=== PATIENT | male | born 1955 | race Hispanic/Latino ===

== ENCOUNTER 2018-10-20 19:18 | Observation (INO) | payer BC, OTHER ==
[~2018-10-20] VITALS: Ht 175.3 cm; Wt 92.1 kg
[~2018-10-20 19:18] MED LIST: AMLODIPINE BESYL5 MG PO; ASPIR 8181 MG PO; CO Q10100 MG PO; FLOMAX0.4 MG PO; PLAVIX75 MG PO; SIMVASTATIN40 MG PO
--- OUTSIDE RECORDS SUMMARY | 2018-10-20 19:22 | XMS REPORT ---
Author Author [facility] Address Unknown Phone Unavailable Care Team Providers Care Assistant Program Director Name Role Phone Unavailable Unavailable Problems This patient has no known problems. Allergies, Adverse Reactions, Alerts This patient has no known allergies or adverse reactions. Medications This patient has no known medications.
[2018-10-20] MEDS ORDERED: SODIUM CHLORIDE 0.9% 1000ML 1,000 ML IV ONE (19:45)
[2018-10-20] MEDS ORDERED: PANTOPRAZOLE 40 MG 10ML VIAL IV NR (20:00)
[2018-10-20] MEDS ORDERED: ONDANSETRON HCL INJ 2MG/ML 2ML 2 MG/ML VIAL IV NR (20:00)
[2018-10-20 20:03] LABS: BASOPHILS % 0.3 % (0.0-1.0); HEMOGLOBIN 15.8 g/dL (14.0-18.0); LYMPHOCYTES # (AUTO) 1.5 (1.0-3.2); LYMPHOCYTES % 12.5 % (18.0-39.1); MEAN CORPUSCULAR HGB CONC 31.6 g/dL (31-35); MEAN CORPUSCULAR VOLUME 88.5 fL (81-99); MONOCYTES # (AUTO) 0.8 (0.2-0.8); MONOCYTES % 6.9 % (4.4-11.3); NEUTROPHILS # (AUTO) 9.6 (2.1-6.9); NEUTROPHILS % 80.1 % (38.7-80.0); PLATELET COUNT 295 x10e3/uL (140-360); RED BLOOD COUNT 5.65 x10e6/uL (4.3-5.7); RED CELL DISTRIBUTION WIDTH 14.6 % (11.7-14.4)
[2018-10-20 20:24] LABS: ALBUMIN 4.4 g/dL (3.5-5.0); ALBUMIN/GLOBULIN RATIO 1.1 (0.8-2.0); ANION GAP 15.8 mmol/L (8-16); CALCIUM 10.3 mg/dL (8.4-10.2); CREATININE, SERUM 1.29 mg/dL (0.72-1.25); POTASSIUM 3.8 mmol/L (3.5-5.1)
[2018-10-20 20:26] LABS: INR 1.08; PROTHROMBIN TIME 14.5 seconds (11.9-14.5)
[2018-10-20 20:27] LABS: PARTIAL THROMBOPLASTIN TIME 29.5 seconds (23.8-35.5)
[2018-10-20 20:43] LABS: CLARITY,URINE HAZY (CLEAR); COLOR,URINE YELLOW (YELLOW); KETONES,URINE 1+ (NEGATIVE); LEUKOCYTE ESTERASE ,URINE NEGATIVE (NEGATIVE); NITRITE,URINE NEGATIVE (NEGATIVE); PROTEIN,URINE DIPSTICK 3+ (NEGATIVE); URINE UROBILINOGEN 4 mg/dL (0.2 - 1)
[2018-10-20 20:44] LABS: BILIRUBIN,URINE 1+ (NEGATIVE)
[2018-10-20 20:54] LABS: WBC,URINE (MAN) 0-5 /HPF (0-5)
[2018-10-20 20:55] LABS: BACTERIA,URINE FEW /HPF; EPITHELIAL CELLS,URINE FEW /LPF; MUCUS,URINE FEW (RARE); RBC,URINE 0-5 /HPF (0-5)
--- NOTE | 2018-10-20 21:40 | Diagnostic Imaging Report ---
EXAM: CT Abdomen and Pelvis WITH contrast INDICATION: abd pain, vomiting COMPARISON: None. TECHNIQUE: Abdomen and pelvis were scanned utilizing a multidetector helical scanner from the lung base to the pubic symphysis after administration of IV contrast. Coronal and sagittal reformations were obtained. Routine protocol was performed. Scan was performed when during portal venous phase. IV CONTRAST: 100 mL of Isovue 370 ORAL CONTRAST: Water COMPLICATIONS: None RADIATION DOSE: Total DLP: 657.9 mGy*cm Estimated effective dose: (DLP x 0.015 x size factor) mSv Dose modulation, iterative reconstruction, and/or weight based adjustment of the mA/kV was utilized to reduce the radiation dose to as low as reasonably achievable. FINDINGS: LINES and TUBES: None. LOWER THORAX: Large hiatal hernia with organoaxial rotation. Circumferential esophageal wall thickening may be related to reflux. HEPATOBILIARY: No focal hepatic lesions. No biliary ductal dilation. GALLBLADDER: There are stones in the gallbladder. No wall thickening. SPLEEN: No splenomegaly. PANCREAS: No focal masses or ductal dilatation. ADRENALS: No adrenal nodules KIDNEYS/URETERS: Kidneys enhance symmetrically. No hydronephrosis. No solid mass lesions. Subcentimeter hypodensity in the superior left renal pole, statistically likely cyst. Nonspecific mild right perinephric stranding, greater compared to the left kidney. Punctate nonobstructing calculi in the right kidney without ureteral calculus. GI TRACT: No abnormal distention, wall thickening, or evidence of bowel obstruction. There are diverticula within the colon without evidence of diverticulitis. Appendix is normal. PELVIC ORGANS/BLADDER: Unremarkable. LYMPH NODES: No lymphadenopathy. VESSELS: There is moderate atherosclerotic disease in the aorta and major arterial branches. Circumaortic left renal vein. PERITONEUM / RETROPERITONEUM: No free air or fluid. BONES: There are degenerative changes in the lumbar spine. SOFT TISSUES: Small fat-containing direct left inguinal hernia. IMPRESSION: 1. Large hiatal hernia with organoaxial rotation. Nonspecific circumferential esophageal wall thickening, possibly related to esophagitis from reflux given the hiatal hernia or reported emesis. 2. Colonic diverticulosis. 3. Given reported blood in stool, recommend correlation with colon cancer screening given limited ability on non-colonography CT to evaluate for small masses. 4. Cholelithiasis. Signed by: DR. Brennen Sandra MD on 10/20/2018 9:37 PM
[2018-10-20] MEDS ORDERED: MORPHINE SULFATE 2 MG/ML SYR 1ML IV PRN (22:15)
[2018-10-20] MEDS ORDERED: ONDANSETRON HCL INJ 2MG/ML 2ML 2 MG/ML VIAL IV PRN (22:15)
[2018-10-20] MEDS ORDERED: ISOSORBIDE MONO30 MG PO (22:40)
[2018-10-20] MEDS ORDERED: ATORVASTATIN CA20 MG PO (22:40)
[2018-10-21] MEDS: SODIUM CHLORIDE 0.9% 1000ML 1,000 ML IV SCH ×3 (00:26→10:22)
[2018-10-21 05:51] LABS: BASOPHILS % 0.3 % (0.0-1.0); EOSINOPHILS # (AUTO) 0.1 (0.0-0.4); EOSINOPHILS % 0.5 % (0.0-6.0); HEMATOCRIT 39.4 % (38.2-49.6); HEMOGLOBIN 12.5 g/dL (14.0-18.0); LYMPHOCYTES # (AUTO) 2.1 (1.0-3.2); LYMPHOCYTES % 22.8 % (18.0-39.1); MEAN CORPUSCULAR HEMOGLOBIN 28.2 pg (28-32); MEAN CORPUSCULAR HGB CONC 31.7 g/dL (31-35); MEAN CORPUSCULAR VOLUME 88.7 fL (81-99); MONOCYTES # (AUTO) 0.9 (0.2-0.8); MONOCYTES % 9.7 % (4.4-11.3); NEUTROPHILS # (AUTO) 6.2 (2.1-6.9); NEUTROPHILS % 66.4 % (38.7-80.0); PLATELET COUNT 231 x10e3/uL (140-360); RED BLOOD COUNT 4.44 x10e6/uL (4.3-5.7); RED CELL DISTRIBUTION WIDTH 14.6 % (11.7-14.4)
[2018-10-21] MEDS ORDERED: PIPER-TAZ 3.375 GM 50 ML IV SCH (06:00)
[2018-10-21] MEDS ORDERED: SODIUM CHLORIDE 0.9% 50ML 50 ML ONE (06:15)
[2018-10-21] MEDS ORDERED: IOPAMIDOL 370 MG/ML 200 ML INFUS..BTL INJ ONE (06:15)
[2018-10-21 06:27] LABS: ALANINE AMINOTRANSFERASE 64 IU/L (0-55); ALBUMIN 3.3 g/dL (3.5-5.0); ALBUMIN/GLOBULIN RATIO 1.1 (0.8-2.0); ALKALINE PHOSPHATASE 90 IU/L (40-150); AMYLASE 89 U/L (25-125); ANION GAP 10.7 mmol/L (8-16); BLOOD UREA NITROGEN 26 mg/dL (7-26); BUN/CREATININE RATIO 28 (6-25); CALCIUM 8.5 mg/dL (8.4-10.2); CARBON DIOXIDE 26 mmol/L (22-29); CHLORIDE 107 mmol/L (98-107); CREATININE, SERUM 0.93 mg/dL (0.72-1.25); EST GLOMERULAR FILTRATION RATE > 60 ML/MIN (60-); GLUCOSE 84 mg/dL (74-118); LIPASE 21 U/L (8-78); POTASSIUM 3.7 mmol/L (3.5-5.1); SODIUM 140 mmol/L (136-145)
[2018-10-21] MEDS: ISOSORBIDE MONONITRATE 30 MG TAB CR PO SCH (09:00)
[2018-10-21] MEDS: AMLODIPINE BESYLATE 5 MG TAB PO SCH (09:00)
--- NOTE | 2018-10-21 12:00 | NUR ---
Christofer WEISS AT BEDSIDE FOR PATIENT EVAL, AWAITING ORDERS AT THIS TIME.
--- NOTE | 2018-10-21 12:45 | Diagnostic Imaging Report ---
MRCP CPT code: 05533 History: Nausea, vomiting, hematochezia, gallstones and elevated LFTs Comparison: Abdomen/pelvis 10/20/2018. Technique: Multiplanar, multisequence images of the abdomen were obtained per MRCP protocol. 3D volume rendered reformation images of the biliary tree were performed. No intravenous gadolinium was administered. Findings: The intra and extrahepatic biliary ducts, and cystic duct appear normal. Common bile duct measures 6 mm in diameter with squared shoulders as it approaches the ampulla. There are no intraluminal filling defects to suggest choledocholithiasis. The pancreas duct is not dilated. Gallbladder: Present and is filled with gallstones. The largest gallstone measures 1.3 cm. No gallbladder wall thickening or pericholecystic fluid. Liver: Decreased signal on opposed phase sequence consistent with steatosis. Calculated hepatic fat percentage is 19.7 consistent with moderate steatosis. No evidence of mass. Spleen: Normal size and signal. No mass Pancreas: Diffuse fatty atrophy. No mass Kidneys: No hydronephrosis. A cyst in the right kidney measures 7 mm. A cyst in the upper pole of the left kidney measures 8 mm. Adrenal glands: No evidence for mass. Lymph nodes: No enlarged abdominal or periaortic lymph nodes. Bowel: Large hiatal hernia containing stomach. Diverticulosis coli. Visualized portions of the small bowel are normal in diameter with normal wall thickness. Peritoneum/retroperitoneum: No free fluid or fluid collection. Visualized portions of the pelvis are unremarkable. Lung bases: Clear. Bones: Normal marrow signal. No focal osseous lesions. IMPRESSION: 1. Cholelithiasis. No evidence of choledocholithiasis. Squaring of the shoulders of the distal common bile duct may be secondary to ampullary stenosis. No intrahepatic biliary ductal dilatation. 2. Moderate steatosis. 3. Large hiatal hernia containing stomach. 4. Diverticulosis coli. Thank you for your referral. Signed by: Dr. Leigh Wylie MD on 10/21/2018 12:41 PM
[2018-10-21] MEDS: PIPER-TAZ 3.375 GM 50 ML IV SCH ×2 (14:04→17:32)
--- NOTE | 2018-10-21 15:20 | NUR ---
Dr. Joseph here rounding on pt.
--- NOTE | 2018-10-21 15:20 | NUR ---
Woodrow myers in [facility] - 10/21/18 at [email or web address] Joseph here rounding at this time.
[2018-10-21] MEDS ORDERED: MORPHINE SULFATE INJ 4 MG/ML INJ 1ML IV PRN (15:30)
--- NOTE | 2018-10-21 15:46 | NUR ---
Dr. Estefani Mcgee notified of consult.
[2018-10-21 15:57] VITALS: BP 137/68
[2018-10-21] MEDS ORDERED: PNEUMOCOCCAL VACCINE POLYVALENT 23 MCG/0.5 ML VIAL IM SCH (15:58)
[2018-10-21] MEDS ORDERED: INFLUENZA VIRUS VAC SPLIT INJ 0.5 ML SYR IM SCH (15:58)
[2018-10-21 15:59] VITALS: BP 137/68
[2018-10-21 16:11] VITALS: BP 137/68
[2018-10-21 20:00] VITALS: BP 147/68
[2018-10-21] MEDS ORDERED: ATORVASTATIN 20 MG TAB PO SCH (21:00)
[2018-10-22] VITALS: BP 130/67
[2018-10-22] MEDS: SODIUM CHLORIDE 0.9% 1000ML 1,000 ML IV SCH ×2 (01:22→12:20)
[2018-10-22] MEDS: PIPER-TAZ 3.375 GM 50 ML IV SCH ×2 (01:22→10:05)
--- NOTE | 2018-10-22 01:26 | History and Physical ---
CHIEF COMPLAINT: Nausea, vomiting, and diarrhea. HISTORY OF PRESENT ILLNESS: This is a 63-year-old male with past medical history of morbid obesity, hyperlipidemia, and hypertension, who comes into the ED with complaints of nausea, vomiting, abdominal pain ongoing for the last 3 to 4 days. He reports that his abdominal pain was a kind of diffuse in nature. Denies any hemoptysis or any hematemesis. Also, reports having diarrhea, loose in nature, but no blood in the stool. Denies any bilious vomiting. The patient was evaluated at bedside on the medical floor in the ER. Currently, he denies any abdominal pain. He is hungry. He reports his pain is all resolved now. His imaging study was concerning for cholelithiasis. REVIEW OF SYSTEMS: Pertinent positives: Nausea, vomiting, and abdominal pain. Pertinent negatives: Denies any chest pain, palpitation, dysuria, hematuria, frequency, urgency, lightheadedness, dizziness, cough, congestion, fever, or any other complaints. Rest of 14-point review of systems has been reviewed with the patient and are negative. ALLERGIES: NO KNOWN DRUG ALLERGIES. HOME MEDICATIONS: Amlodipine 5 mg daily, aspirin 81 mg daily, Lipitor 20 mg at bedtime, isosorbide mononitrate 30 mg daily, and Plavix 75 mg daily. PAST MEDICAL HISTORY: He has hyperlipidemia and hypertension. PAST SURGICAL HISTORY: None. FAMILY HISTORY: Hypertension and diabetes. SOCIAL HISTORY: No drugs or alcohol. Does not smoke. Good social support. LABORATORY FINDINGS: Show white count is 9.3, on admission, it was 12, hemoglobin 12.5, hematocrit is 39, and platelets of 231. Coagulation; PT is 14, INR 1, and PTT 29. Chemistry; sodium 140, potassium 3.7, chloride 107, bicarb 26, anion gap 10, BUN is 26, creatinine is 0.93, glucose 84, and calcium 8.5. His total bilirubin was 1.4, AST 37, ALT 64, alkaline phosphatase 90, total protein 6.3, lipase is 21, and amylase is 89. Urinalysis was found to be 3+ protein, 1+ ketones, and specific gravity is elevated. Microbiology none. IMAGING STUDIES: CT of abdomen and pelvis shows a large hiatal hernia. There is possible esophagitis, reflux. MRCP shows cholelithiasis with no evidence of choledocholithiasis of the common bile duct. There was significant moderate steatosis. Large hiatal hernia containing stomach. PHYSICAL EXAMINATION: VITAL SIGNS: Temperature is 98.7, pulse 64, respirations 16, blood pressure , and pulse ox 96% on room air. GENERAL: In no acute distress. Alert and oriented x3. Cooperative on examination. HEENT: Head is normocephalic and atraumatic. Eyes, pupils equal, round, and reactive to light bilaterally. Extraocular movements are intact bilaterally. No evidence of erythema or exudate in posterior pharynx. Has poor dentition. NECK: Supple. Good range of motion. PULMONARY: Clear to auscultation bilaterally. No wheezing, rales, or rhonchi. No crackles appreciated. CARDIOVASCULAR: S1 and S2. No murmurs or gallops. ABDOMEN: Soft, nondistended, and nontender to palpation. Bowel sounds are present. MUSCULOSKELETAL: Strength is 5/5 throughout. No evidence of any muscles deficits on examination. No weakness appreciated. NEUROLOGICAL: Cranial nerves II through XII grossly intact. No evidence of any neurological deficits on exam. SKIN: Intact. Warm to touch. Good cap refill. PSYCHIATRIC: Normal affect and mood. EXTREMITIES: No edema. Good range of motion throughout. IMPRESSION: 1. Abdominal pain with nausea, vomiting, and found to have a large hiatal hernia. 2. Cholelithiasis, could be leading to his underlying abdominal pain, nausea, and vomiting. 3. Hypertension. 4. Hyperlipidemia. PLAN: At this time, the patient is pain free. No more nausea or vomiting. We will start on a clear liquid diet. Await General Surgery recommendations. Pain control, antinausea medication, and IV fluids. Resume same home medications. Hold the Plavix and then he needs some surgical intervention. It seems to be less likely to be gallbladder, as his gallbladder is not inflamed, but could be biliary colic. At this time, we will continue same plan of care. Monitor closely. Get a.m. labs. MD SIGRID Hammer/RICH /[id number]
[2018-10-22 04:00] VITALS: BP 141/71
[2018-10-22 07:46] VITALS: BP 149/69
[2018-10-22] MEDS ORDERED: ASPIRIN 81 MG CHEW TAB PO SCH (09:00)
[2018-10-22] MEDS: AMLODIPINE BESYLATE 5 MG TAB PO SCH (10:05)
[2018-10-22] MEDS: ISOSORBIDE MONONITRATE 30 MG TAB CR PO SCH (10:05)
[2018-10-22 11:40] VITALS: BP 134/63
[2018-10-22 11:47] VITALS: BP 134/63
--- NOTE | 2018-10-23 10:55 | Discharge Summary ---
FINAL DISCHARGE DIAGNOSES: 1. Abdominal pain secondary to a large hiatal hernia with associated nausea and vomiting - General Surgery came and evaluated the patient, recommended discharge to follow up in his office in 1-2 weeks for further management and care and also to have his hiatal hernia repaired at a later date. 2. Cholelithiasis. 3. Hypertension. 4. Hyperlipidemia. 5. Acute kidney injury secondary to dehydration. CONSULTANTS: General Surgery. PHYSICAL EXAMINATION: VITAL SIGNS: Temperature is 97.5, pulse is 67, respiratory rate is 19, blood pressure is 134/63, and pulse ox is 96% on room air. LAB FINDINGS: Show white count is9.3, hemoglobin 12.5, hematocrit 39, and platelets of 231. Chemistry; sodium 140, potassium 3.7, chloride 107, bicarb 26, anion gap of 10.7, BUN 26, creatinine 0.93, calcium is 8.5. Total bilirubin is 1.4, AST 37, ALT 64, alkaline phosphatase 90, total protein 6.3, albumin is 3.3, lipase is 21. Urinalysis was consistently negative, shows evidence of dehydration and elevated specific gravity. MICROBIOLOGY: None. IMAGING STUDIES: CT abdomen and pelvis shows large hiatal hernia with organoaxial rotation. esophageal wall thickening possibly related to esophagitis hiatal hernia reported. There is evidence of diverticulosis. There is some cholelithiasis as well. MRCP was performed, shows cholelithiasis, no evidence of choledocholithiasis. the distal common bile duct maybe secondary to ampullary stenosis. No intrahepatic biliary duct dilatation. Moderate steatosis. Large hiatal hernia containing stomach. Diverticulosis coli. HOSPITAL COURSE: This is a 63-year-old male, who came into the ED with complaint of abdominal pain, nausea, vomiting for the last several days. The patient was found to be dehydrated and started on IV fluids. The patient was also found to have acute kidney injury secondary to dehydration, which resolved with IV fluids. The patient improved throughout the hospital course. He was on pain control and is on nausea medication. He was tolerating diet well. General Surgery was consulted. Imaging studies were consistent with a large hiatal hernia. According to General Surgery's note, he recommends outpatient followup in his office in about 1-2 weeks to have his hiatal hernia repaired and no need for any intervention at this time during this hospital stay. The patient verbalized understanding. The patient was then cleared by General Surgery for discharge home. The patient was discharged based on General Surgery's recommendations upon his expertise and opinion. His notes state that he was okay to discharge home and to follow up later this week for further test and to outpatient hiatal hernia repair for an elective surgery as well as cholecystectomy . On discharge, the patient was tolerating diet well with no other complaints. No nausea, no vomiting, no abdominal pain. On the day of discharge, vital signs stable, labs reviewed and stable. The patient was seen, evaluated, and examined on the day of discharge, no other complaints. The patient verbalized understanding and agrees with plan of care and followup appointment as an outpatient with the primary care physician in 1 week and General Surgery in about 1-week time. MEDICATIONS: See med reconciliation form. DISPOSITION: Home. CONDITION: Stable. DIET: Heart healthy. If there are any worsening symptoms, the patient is advised to come back to the ED for further evaluation. Discharge summary took greater than 35 minutes. MD SIGRID Hammer/[facility] /[id number]
== END 2018-10-22 14:30 | disposition home or self-care (01) ==
LOC: ER 19:18 → ERHOLD 22:16 → IMCU 10-21 15:53
PROVIDERS: ADMIT Internal Medicine; ATTEND Internal Medicine
DX: K44.0 Diaphragmatic hernia with obstruction, without gangrene (principal); K56.2 Volvulus; K80.20 Calculus of gallbladder without cholecystitis without obstruction; N17.9 Acute kidney failure, unspecified; R19.7 Diarrhea, unspecified; Z82.49 Family history of ischemic heart disease and other diseases of the circulatory system; E66.01 Morbid (severe) obesity due to excess calories; Z68.1 Body mass index [BMI] 19.9 or less, adult; E78.5 Hyperlipidemia, unspecified; I10 Essential (primary) hypertension; Z68.30 Body mass index [BMI] 30.0-30.9, adult; E86.0 Dehydration
CPT/HCPCS: 36415 ×2; 74177; 74181; 80053 ×2; 81001; 82150 ×2; 83690 ×2; 85025 ×2; 85610; 85730; 96374; 99284; C9113; G0378 ×3; J2405; J2543 ×2; J7030 ×3; Q9967

== ENCOUNTER → 2018-10-25 | Outpatient (CLI) | payer OTHER ==
[~2018-10-25] MED LIST changes: +ATORVASTATIN CA20 MG PO; +ISOSORBIDE MONO30 MG PO
--- NOTE | 2018-10-25 13:00 | Diagnostic Imaging Report ---
PROCEDURE:X-RAY UPPER GI SERIES WITH AIR CONTRAST COMPARISON:None. INDICATIONS:Hiatal hernia FINDINGS:The patient was given air crystals, thick barium, and thin barium to drink in upright and prone positions. Multiple images of the esophagus, stomach, and duodenum were obtained. There is a small Zenker's diverticulum within the cervical esophagus. There is a large hiatal hernia with greater than one half of the stomach present within the chest cavity. No ulcers within the stomach. The duodenum is normal without evidence of intrinsic mucosal or extrinsic abnormality. There is no evidence of ulcer or fold thickening. Fluoroscopy time: 2.0 minutes. Total Dose: 96.539 mGy CONCLUSION: 1. Small cervical esophageal Zenker's diverticulum. 2. Large hiatal hernia. David Simeon D.O. Dictated by: David Simeon D.O. on 10/25/2018 at 13:13 Electronically approved by: David Simeon D.O. on 10/25/2018 at 13:13
== END ==
LOC: DX 07:49
PROVIDERS: ATTEND Surgery
DX: K44.9 Diaphragmatic hernia without obstruction or gangrene (principal)
CPT/HCPCS: 74246